=== PATIENT | female | born 1940 | race American Indian/Alaskan Native ===

== ENCOUNTER 2021-03-19 14:28 | Emergency (ER) | payer MEDICARE ==
[2021-03-19] MEDS ORDERED: ASPIRIN 81 MG TAB CHEW PO ONE (14:38)
[2021-03-19] MEDS ORDERED: MORPHINE 4 MG/1 ML INJ IV ONE (14:39)
[2021-03-19] MEDS ORDERED: ONDANSETRON 4 MG/2 ML INJ IV ONE (14:39)
--- NOTE | 2021-03-19 14:48 | Emergency Department Report ---
ED General Adult HPI - General Chief complaint: Neck Pain/Injury Stated complaint: NECK PAIN Time Seen by Provider: 03/19/21 14:38 Source: patient Mode of arrival: Stretcher Limitations: No Limitations - History of Present Illness Initial comments: Patient is 80 years old female with history of hypertension and diabetes. Patient brought to the emergency room via EMS for initial complaint of neck pain that started 4 days ago. Patient stated that her symptoms preceded by chest pain first then went to her back and to the abdomen. Patient described her chest pain as sharp. She denied any recent injury. Patient also denied any shortness of breath, cough or fever or chills. Severity scale (0 -10): 10 - Related Data Allergies Allergy/AdvReac Type Severity Reaction Status Date / Time No Known Allergies Allergy Unverified 03/19/21 14:39 ED Review of Systems ROS: Stated complaint: NECK PAIN Other details as noted in HPI Comment: All other systems reviewed and negative Constitutional: denies: chills, fever Respiratory: denies: cough, orthopnea, shortness of breath, SOB with exertion, SOB at rest Cardiovascular: chest pain. denies: palpitations Gastrointestinal: denies: abdominal pain, nausea, vomiting Musculoskeletal: back pain Neurological: denies: headache, weakness, numbness, paresthesias, confusion ED Physical Exam - General Limitations: No Limitations General appearance: alert, in no apparent distress - Head Head exam: Present: atraumatic, normocephalic, normal inspection - Eye Eye exam: Present: normal appearance, PERRL - ENT ENT exam: Present: normal exam, normal orophraynx, mucous membranes moist - Neck Neck exam: Present: normal inspection, full ROM. Absent: tenderness, meningismus - Respiratory Respiratory exam: Present: normal lung sounds bilaterally - Cardiovascular Cardiovascular Exam: Present: regular rate, normal rhythm, normal heart sounds - GI/Abdominal GI/Abdominal exam: Present: soft, normal bowel sounds. Absent: distended, tenderness, guarding, rebound, rigid, organomegaly, mass, bruit, pulsatile mass, hernia - Extremities Exam Extremities exam: Present: normal inspection, full ROM, normal capillary refill. Absent: tenderness, pedal edema, joint swelling, calf tenderness - Back Exam Back exam: Present: normal inspection, full ROM. Absent: CVA tenderness (R), CVA tenderness (L) - Neurological Exam Neurological exam: Present: alert, oriented X3, CN II-XII intact, normal gait, reflexes normal. Absent: motor sensory deficit - Psychiatric Psychiatric exam: Present: normal mood - Skin Skin exam: Present: warm, intact, normal color ED Course Vital Signs 03/19/21 03/19/21 03/19/21 14:30 15:25 15:31 Temperature 99.2 F Pulse Rate 88 98 H 98 H Respiratory 18 15 Rate Blood Pressure 158/87 Blood Pressure 176/108 [Left] O2 Sat by Pulse 97 98 99 Oximetry 03/19/21 03/19/21 03/19/21 15:45 16:01 16:15 Temperature Pulse Rate 100 H 96 H 99 H Respiratory 17 17 26 H Rate Blood Pressure 136/82 156/81 147/89 Blood Pressure [Left] O2 Sat by Pulse 98 98 94 Oximetry 03/19/21 03/19/21 03/19/21 16:31 16:33 16:45 Temperature Pulse Rate 100 H 96 H Respiratory 12 18 Rate Blood Pressure 150/85 145/80 Blood Pressure [Left] O2 Sat by Pulse 99 100 97 Oximetry 03/19/21 03/19/21 03/19/21 17:01 17:15 17:31 Temperature Pulse Rate 98 H 98 H 101 H Respiratory 16 14 16 Rate Blood Pressure 137/74 146/80 156/81 Blood Pressure [Left] O2 Sat by Pulse 96 97 96 Oximetry 03/19/21 17:45 Temperature Pulse Rate 102 H Respiratory 18 Rate Blood Pressure 152/76 Blood Pressure [Left] O2 Sat by Pulse 97 Oximetry ED Medical Decision Making - Lab Data Result diagrams: 03/19/21 15:20 03/19/21 15:20 - EKG Data -: EKG Interpreted by Mi EKG shows normal: sinus rhythm Rate: normal - Radiology Data Radiology results: report reviewed - Medical Decision Making Patient is 80 years old female with history of hypertension and diabetes. Patient brought to the emergency room via EMS for initial complaint of neck pain that started 4 days ago. Patient stated that her symptoms preceded by chest pain first then went to her back and to the abdomen. Patient described her chest pain as sharp. She denied any recent injury. Patient also denied any shortness of breath, cough or fever or chills. EKG is unremarkable. Labs reviewed and is negative including a negative troponin x2. Chest x-ray is unremarkable. Cervical spine x-ray showed DJD with no acute finding. During her ER stay patient never complained about chest pain she is always complaining of neck pain. Patient received morphine and fentanyl. Patient stated that she is feeling much better. I do not think this is cardiac or regional however patient also advised to follow-up with her primary doctor in the next 2 to 3 days for outpatient cardiac work-up if pain continue and also advised to return to the ER if she develop any new symptoms. Critical care attestation.: If time is entered above; I have spent that time in minutes in the direct care of this critically ill patient, excluding procedure time. ED Disposition Clinical Impression: Acute neck pain Disposition: HOME / SELF CARE / HOMELESS Is pt being admited?: No Condition: Stable Instructions: Radicular Pain Referrals: PRIMARY CARE, [Primary Care Provider] - 3-5 Days
--- NOTE | 2021-03-19 15:30 | XRay Report ---
CHEST 1 VIEW INDICATION: Chest Pain. COMPARISON: None FINDINGS: SUPPORT DEVICES: None. HEART: Within normal limits. LUNGS/PLEURA: No acute air space or interstitial disease. ADDITIONAL FINDINGS: None. IMPRESSION: 1. No acute findings. Signer Name: Marco A Lizarraga MD Signed: 03/19/2021 3:26 PM Workstation Name: [id number]
--- NOTE | 2021-03-19 15:30 | XRay Report ---
Cervical spine-5 views INDICATION: neck injury. COMPARISON: None. IMPRESSION: Reversal of normal cervical lordosis as well as 3 mm of anterolisthesis of C7 on T1. Mo derate multilevel discogenic DJD. No acute osseous or soft tissue abnormality. Signer Name: Marco A Lizarraga MD Signed: 03/19/2021 3:26 PM Workstation Name: [id number]
[2021-03-19 15:36] LABS: Basophils % (Auto) 0.3 % (0.0-1.8); Eosinophils # (Auto) 0.1 K/mm3 (0.0-0.4); Eosinophils % (Auto) 0.7 % (0.0-4.3); Hematocrit 40.2 % (30.3-42.9); Hemoglobin 13.1 gm/dl (10.1-14.3); Lymphocytes # (Auto) 0.7 K/mm3 (1.2-5.4); Lymphocytes % (Auto) 8.8 % (13.4-35.0); Mean Corpuscular HGB Conc 33 % (30-34); Mean Corpuscular Volume 88 fl (79-97); Monocytes # (Auto) 0.6 K/mm3 (0.0-0.8); Monocytes % (Auto) 7.3 % (0.0-7.3); Platelet Count 225 K/mm3 (140-440); Red Blood Count 4.58 M/mm3 (3.65-5.03); Red Cell Distribution Width 14.7 % (13.2-15.2)
[2021-03-19 15:49] LABS: INR 0.95 (0.87-1.13)
[2021-03-19 15:50] LABS: Partial Thromboplastin Time 27.8 Sec. (24.2-36.6)
[2021-03-19 15:58] LABS: Alanine Aminotransferase 10 units/L (7-56); Albumin 4.1 g/dL (3.9-5); BUN/Creatinine Ratio 12; Bilirubin,Direct 0.4 mg/dL (0-0.2); Blood Urea Nitrogen 11 mg/dL (7-17); Calcium 10.4 mg/dL (8.4-10.2); Hemolysis Index 13
[2021-03-19 18:01] VITALS: BP 152/76
[2021-03-19] MEDS ORDERED: fentaNYL 250 MCG/5 ML INJ IV ONE (18:33)
[2021-03-19] MEDS ORDERED: fentaNYL 100 MCG/2 ML INJ IV ONE (19:00)
--- NOTE | 2021-03-20 08:57 | Electrocardiograph Report ---
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
== END 2021-03-19 19:40 | disposition home or self-care (01) ==
LOC: ED 14:28
DX: M54.2 Cervicalgia (principal); I10 Essential (primary) hypertension; E11.9 Type 2 diabetes mellitus without complications
CPT/HCPCS: 36415; 71045; 72040; 80048; 80076; 83690; 84484; 85025; 85610; 85730; 93005; 96374; 96375; 99284; J2270; J2405; J3010